=== PATIENT | male | born 1975 | race Caucasian/White ===

== ENCOUNTER 2016-11-11 08:01 | Emergency (ER) | payer OTHER | END 2016-11-11 09:29 | disposition home or self-care (01) | LOC: FER 08:01 | DX: J10.1 Influenza due to other identified influenza virus with other respiratory manifestations (principal); F17.200 Nicotine dependence, unspecified, uncomplicated; Z88.8 Allergy status to other drugs, medicaments and biological substances | CPT/HCPCS: 71020; 87450; 87804; 87899; 99283 ==

== ENCOUNTER 2017-02-05 13:52 | Day surgery (SDCO) | payer OTHER ==
[~2017-02-05] VITALS: Ht 177.8 cm; Wt 77.1 kg
[2017-02-05 14:34] LABS: BASOPHIL 0.4 % (0-2); EOSINOPHIL 0.2 % (0-5); HCT 47.7 % (42.0-52.0); HGB 17.9 g/dl (13.2-18.0); MCHC 37.5 g/dL (32.0-36.0); MCV 85.3 fL (78.0-100.0); MONOCYTE 9.5 % (0-12); NEUTROPHIL 78.9 % (41-80); PLT 276 K/uL (150-400); RBC 5.59 M/uL (4.70-6.00); RDW 13.5 % (11.5-14.0); WBC 16.6 K/uL (4.0-10.5)
[2017-02-05 15:01] LABS: ALBUMIN 5.5 g/dL (3.5-5.0); CREATININE 2.2 mg/dL (0.7-1.2); GLOBULIN (CALCULATION) 3.7 g/dL (2.2-4.2); MAGNESIUM 2.44 mg/dL (1.40-2.10); POTASSIUM 4.5 mmol/L (3.5-5.1); TOTAL PROTEIN 9.2 g/dL (6.4-8.3)
[2017-02-05 15:53] LABS: BILIRUBIN NEGATIVE (NEGATIVE); BLOOD 2+ Ery/uL (NEGATIVE); CLARITY CLEAR (CLEAR); COLOR YELLOW (YELLOW); GLUCOSE (U) NORMAL (NORMAL); KETONE (U) TRACE mg/dL (NEGATIVE); LEUKOCYTES NEGATIVE Leu/uL (NEGATIVE); NITRITE NEGATIVE (NEGATIVE); PROTEIN TRACE (LOW) mg/dL (NEGATIVE); SPECIFIC GRAVITY 1.025 (1.001-1.030); UROBILINOGEN 0.2 mg/dL (0.2-1.0); pH 5.5 (5.0-9.0)
[2017-02-05 15:57] LABS: SQUAMOUS EPITHELIAL CELLS RARE; URINARY WBC RARE
[2017-02-05 16:45] LABS: AMPHETAMINES NEGATIVE (NEGATIVE); BENZODIAZEPINES NEGATIVE (NEGATIVE); COCAINE NEGATIVE (NEGATIVE)
[2017-02-05 16:46] LABS: BARBITURATES NEGATIVE (NEGATIVE); MARIJUANA (THC) POSITIVE (NEGATIVE); METHADONE NEGATIVE (NEGATIVE); TRICYCLIC ANTIDEPRESSANT NEGATIVE (NEGATIVE)
[2017-02-06 06:36] LABS: HCT 41.1 % (42.0-52.0); HGB 14.7 g/dl (13.2-18.0); MCH 31.3 pg (25.0-31.0); MCHC 35.8 g/dL (32.0-36.0); MCV 87.6 fL (78.0-100.0); MPV 10.2 fL (6.0-9.5); RBC 4.69 M/uL (4.70-6.00); RDW 13.6 % (11.5-14.0); WBC 7.8 K/uL (4.0-10.5)
[2017-02-06 07:05] LABS: MAGNESIUM 2.1 mg/dL (1.40-2.10); POTASSIUM 3.9 mmol/L (3.5-5.1)
== END 2017-02-06 11:49 | disposition home or self-care (01) ==
LOC: FER 13:52 → FMS 15:20
PROVIDERS: Emergency Medicine; ADMIT Internal Medicine
DX: M62.82 Rhabdomyolysis (principal); N17.9 Acute kidney failure, unspecified; E87.2 Acidosis; E86.0 Dehydration; F17.210 Nicotine dependence, cigarettes, uncomplicated; Z86.14 Personal history of Methicillin resistant Staphylococcus aureus infection; Z83.2 Family history of diseases of the blood and blood-forming organs and certain disorders involving the immune mechanism
CPT/HCPCS: 36415; 71010; 80048; 80053; 80305; 81001; 82550; 83735; 83874; 85025; 87088; 93005; G0378; J2060